=== PATIENT | male | born 1945 | race Caucasian/White ===

== ENCOUNTER 2017-09-01 09:30 | Inpatient (IN) | payer OTHER, MEDICARE ==
[~2017-09-01] VITALS: Ht 170.2 cm; Wt 94.1 kg
[2017-10-23] MEDS ORDERED: LOSA25TA PO (12:12)
[2017-10-23] MEDS ORDERED: ALPR1TAB3 PO (12:12)
[2017-10-23] MEDS ORDERED: MECL-62 PO (12:12)
[2017-10-23] MEDS ORDERED: ASPI1TAB57 PO (12:12)
[2017-10-23] MEDS ORDERED: VITA10002 PO (12:12)
[2017-10-23] MEDS ORDERED: OXYB5TAB8 PO (12:12)
[2017-10-23] MEDS ORDERED: LOTR15T TOPICAL (12:12)
[2017-10-23] MEDS ORDERED: LANS30CA PO (12:12)
[2017-10-23] MEDS ORDERED: CENTCHW3 PO (12:12)
[2017-10-23] MEDS ORDERED: ATOR40TA16 PO (12:12)
[2017-10-23] MEDS ORDERED: VITA1CAP17 PO (12:12)
[2017-10-23] MEDS ORDERED: GLIM2TAB PO (14:07)
[2017-11-10] MEDS ORDERED: VANCOMYCIN 1 GM/200 ML INJ 200 ML IV ONE (06:56)
[2017-11-10] MEDS ORDERED: METOPROLOL TARTRATE 25 MG TAB PO PRN (07:00)
[2017-11-10] MEDS ORDERED: POVIDONE IODINE 5% (ANTISEPSIS KIT) 4 APPLICATIONS EACH NARE PRN (07:00)
[2017-11-10] MEDS ORDERED: SODIUM CHLORID 0.9% 500 ML IV PRN (07:00)
[2017-11-10] MEDS ORDERED: LACTATED RINGER'S 1000 ML IV PRN (07:00)
[2017-11-10] MEDS ORDERED: CHLORHEXIDINE GLUCONATE 2 % 1 PACK (2 CLOTHS) TOPICAL PRN (07:00)
[2017-11-10] MEDS ORDERED: VANCOMYCIN 1000 MG/NS 250 ML (for <70 kg) IV SCH ×2 (07:15)
[2017-11-10] MEDS ORDERED: CHLORHEXIDINE GLUCONATE 4% SOLN 120 ML BTL TOPICAL SCH (07:15)
[2017-11-10] MEDS ORDERED: EXPAREL PERI-ARTICULAR INJECTION (TOTAL VOL. 60 ML) P-ARTICULR SCH ×2 (07:15)
[2017-11-10] MEDS ORDERED: ceFAZolin 2 GM PREMIX 50 ML IV SCH (07:15)
[2017-11-10] MEDS ORDERED: D 50CAP2 PO (07:28)
[2017-11-10] MEDS ORDERED: FURO20TA PO (07:28)
[2017-11-10] MEDS ORDERED: ALBUAER3 INH (07:28)
[2017-11-10 08:00] VITALS: BP 147/77; PULSE 75; RESP 16; TEMP 98.1; O2SAT 95
[2017-11-10] MEDS ORDERED: TRANEXAMIC ACID INJ 965 MG in SODIUM CHLORIDE 0.9% INJ 100 ML IV SCH (08:30)
[2017-11-10] MEDS ORDERED: GENTAMICIN SULFATE 80 MG/2 ML VIAL ONE (08:50)
[2017-11-10] MEDS ORDERED: BUPIVACAINE/EPINEPHRINE 0.25% PF 10 ML VIAL INFIL ONE (10:00)
[2017-11-10] MEDS ORDERED: ALPRAZolam 1 MG TAB PO PRN (11:00)
[2017-11-10] MEDS ORDERED: ONDANSETRON ODT 4 MG TAB PO PRN (11:00)
[2017-11-10] MEDS ORDERED: ALBUTEROL SULFATE 90 MCG/ACT HFA 8 GM INHALER INH PRN (11:00)
[2017-11-10] MEDS ORDERED: ASPIRIN 81 MG CHEW TAB CHEW ONE (11:00)
[2017-11-10] MEDS ORDERED: diphenhydrAMINE HCL 25 MG CAP PO PRN (11:00)
[2017-11-10] MEDS ORDERED: Post-op Orders (for Pharmacy) XX ONE (11:00)
--- NOTE | 2017-11-10 11:00 | PD.OP ---
cc: Juan Manuel Llamas MD Operative Report Date of Surgery: Nov 10, 2017 Preoperative Diagnosis: Osteoarthritis left hip. Avascular necrosis left hip Postoperative Diagnosis: Same Procedure: Left total hip replacement arthroplasty Anesthesia: General Surgeon: Juan Manuel Llamas Wind Turbine Performance Engineer(s): REBECA Garzon Operation and Findings: EBL: 500 cc INDICATION: This patient presents with significant hip pain related to osteoarthritis of left hip and avascular necrosis with collapse. Despite extensive conservative care this patient continues to be painful and now presents for surgical treatment. NOTE: Elly Garzon PA-C was present for the entire surgical procedure as my shampoo assistant. In my medical opinion her skill and care was necessary for the proper management of this patient. COMPONENTS: COMPANY: [employer] CUP: [place], 52, 100 series, gription surface LINER: Altrx 36, neutral STEM: [place], high offset, size 12, hydroxyapatite-coated HEAD: 36, +1.5, 12/14 taper PROCEDURE: This patient was brought to the operating room and anesthetized in the supine position and positioned on the fracture table with both legs held extended. The left hip and leg was scrubbed with alcohol followed by Hibiclens followed by ChloraPrep and draped sterilely. Antibiotics were given within routine time window and a timeout was done. A 4 inch incision was made starting 2 cm distal and 2 cm lateral to the anterior superior iliac spine. The fascia shelbi was opened longitudinally. The interval between the fascia shelbi and the rectus was opened down to the capsule of the hip joint. Retractors were positioned allowing good visualization of the capsule. This was opened longitudinally and flaps were created. Stay sutures were utilized. Exposure was excellent. The neck was cut at the proper location using fluoroscopy as a guide. The head was removed. Deep retractors were positioned allowing good visualization of the acetabulum. Acetabulum was deepened down to the floor starting with a proper size reamer and reaming up to 51 mm. A trial was utilized. Fluoroscopy was used to check position and confirmed satisfactory alignment. The rim was reamed with a 52 mm reamer and the final cup was positioned in approximately 20 of anteversion and 40-45 of abduction. Position was satisfactory. A single hole eliminator was positioned followed by the final liner. The lifting hook was utilized. The leg was dropped to the floor, maximally externally rotated and brought across the midline. Retractors were positioned. A box osteotome was utilized followed by progressive broaching to the proper stem size. Trial reduction showed excellent alignment and fit. With 60 of external rotation the leg was dropped to the floor without evidence of anterior subluxation. The wound was irrigated. The final stem was inserted and was found to be very stable. The final reduction using the final head. Stability was as previously noted. Intraoperative x-rays were taken. The wound was irrigated copiously. Hemostasis was controlled. Local anesthesia was utilized. The capsule was repaired with #2 Tycron sutures. The fascia shelbi was repaired with running 0 PDS on a loop. Subcutaneous tissue was approximated with 2-0 Vicryl and skin with running intradermal 3-0 Vicryl followed by Steri-Strips. A sterile dressing was applied. The patient was awakened and taken to the recovery room in satisfactory condition. FINDINGS: There was a fracture in the femoral head. This was cut and was consistent with avascular necrosis globally involving the femoral head with collapse. There was no complication that was appreciated. Juan Manuel Llamas MD Nov 10, 2017 11:00
[2017-11-10] MEDS ORDERED: HYDR-3583 PO (11:09)
[2017-11-10] MEDS ORDERED: ASPI325T33 PO (11:09)
[2017-11-10] MEDS: LACTATED RINGER'S 1000 ML INJ 1,000 ML IV SCH ×2 (11:40→23:25)
[2017-11-10] MEDS ORDERED: MIDAZOLAM HCL 2 MG/2 ML VIAL ONE (11:42)
[2017-11-10 12:00] VITALS: BP 163/75; PULSE 62; RESP 16; TEMP 98.2; O2SAT 97
[2017-11-10] MEDS ORDERED: PROPOFOL 200 MG/20 ML AMP IV ONE (12:00)
[2017-11-10] MEDS ORDERED: ONDANSETRON HCL 4 MG/2 ML VIAL IV ONE (12:00)
[2017-11-10] MEDS ORDERED: ROCURONIUM INJ 50 MG/5 ML SYRINGE IV PUSH ONE (12:00)
[2017-11-10] MEDS ORDERED: LACTATED RINGER'S 1000 ML INJ 1,000 ML IV ONE (12:00)
[2017-11-10] MEDS ORDERED: LIDOCAINE HCL 1% PF 5 ML SYRINGE OTHER ONE (12:00)
[2017-11-10] MEDS ORDERED: ceFAZolin INJ 1,000 MG VIAL IV ONE (12:00)
[2017-11-10] MEDS ORDERED: NEOSTIGMINE 5 MG/5 ML SYRINGE IV PUSH ONE (12:00)
[2017-11-10] MEDS ORDERED: DEXAMETHASONE SOD PHOS 4 MG/ML VIAL IV ONE (12:00)
[2017-11-10] MEDS ORDERED: GLYCOPYRROLATE 1 MG/5 ML SYRINGE IV PUSH ONE (12:00)
[2017-11-10] MEDS ORDERED: PHENYLEPH/NS 1000 MCG/10 ML SYR IV ONE (12:00)
[2017-11-10] MEDS ORDERED: ePHEDrine/NS 25 MG/5 ML SYRINGE IV ONE (12:00)
[2017-11-10] MEDS ORDERED: DO NOT ADM ANY ANTICOAGULANT DRUGS PRN (12:15)
[2017-11-10] MEDS: OXYBUTYNIN CHLORIDE 5 MG TAB PO SCH ×2 (14:01→21:08)
[2017-11-10] MEDS: ACETAMINOPHEN/HYDROcodone 325 MG/10 MG TAB PO PRN ×2 (14:02→21:10)
[2017-11-10 14:32] VITALS: O2SAT 97
[2017-11-10 16:00] VITALS: BP 153/74; PULSE 74; RESP 18; TEMP 98; O2SAT 97
--- NOTE | 2017-11-10 16:01 | RADRPT ---
EXAM DATE: 11/10/2017 2:34 PM EDT AGE/SEX: 72 years / Male INDICATIONS: Left total hip replacement. CLINICAL DATA: This is the patient's initial encounter. Patient reports that signs and symptoms have been present for 1 day and indicates a pain score of Nonresponsive. MEDICAL/SURGICAL HISTORY: Non-responsive. Non-responsive. COMPARISON: No prior [place] exams available for comparison. FINDINGS: Total hip arthroplasty in good position CONCLUSION: Total hip arthroplasty in good position Electronically signed by: Gilmer Orantes MD 11/10/2017 3:59 PM EDT
[2017-11-10] MEDS ORDERED: MECLIZINE HCL 25 MG TAB PO PRN (18:00)
[2017-11-10 20:45] VITALS: BP 150/72; PULSE 65; RESP 16; TEMP 97.9; O2SAT 94
[2017-11-10] MEDS: MAGNESIUM HYDROXIDE SUSP 30 ML CUP PO SCH (21:00)
[2017-11-10] MEDS: SENNOSIDES 8.6 MG TAB PO SCH (21:07)
[2017-11-10] MEDS: ASPIRIN EC 81 MG TABEC PO SCH (21:07)
[2017-11-10] MEDS: MORPHINE SULFATE 8 MG/ML INJ IM PRN (23:33)
[2017-11-11 00:57] VITALS: BP 131/63; PULSE 64; RESP 16; TEMP 97.6; O2SAT 93
[2017-11-11] MEDS: ACETAMINOPHEN/HYDROcodone 325 MG/10 MG TAB PO PRN ×3 (01:33→18:05)
[2017-11-11 04:45] VITALS: BP 136/64; PULSE 63; RESP 17; TEMP 98.2; O2SAT 95
[2017-11-11] MEDS: MORPHINE SULFATE 8 MG/ML INJ IM PRN (05:48)
[2017-11-11] MEDS: OXYBUTYNIN CHLORIDE 5 MG TAB PO SCH ×3 (05:48→22:23)
[2017-11-11 07:30] LABS: HEMATOCRIT 32.3 % (39.0-51.0); HEMOGLOBIN 10.6 GM/DL (13.0-17.0)
[2017-11-11 08:03] VITALS: BP 114/62; PULSE 71; RESP 18; TEMP 98.1; O2SAT 95
[2017-11-11] MEDS: MAGNESIUM HYDROXIDE SUSP 30 ML CUP PO SCH ×2 (09:00→20:22)
[2017-11-11] MEDS: ASPIRIN EC 81 MG TABEC PO SCH ×2 (09:00→20:22)
[2017-11-11] MEDS: LOSARTAN 25 MG TAB PO SCH (09:13)
[2017-11-11] MEDS: FUROSEMIDE 20 MG TAB PO SCH (09:16)
[2017-11-11] MEDS: PANTOPRAZOLE SOD 40 MG DELAYED RELEASE TAB PO SCH (09:18)
[2017-11-11] MEDS: GLIMEPIRIDE 2 MG TAB PO SCH (09:21)
--- NOTE | 2017-11-11 10:38 | HHI.FF ---
Face to Face Verification Diagnosis: (1) Avascular necrosis of bone of left hip Physical Therapy Gait training, Safety evaluation, Transfer training, bed to chair Hip: Total hip, Protocol: Left, Progress to weight bearing Left LE Weight Bearing: WB as tolerated Additional Instructions PT 4 days/week for 2 weeks. WBAT Left LE. Walker as needed. Anterior JOURDAN protocol. Nursing RN Days per Week: 3 x Week(s): 1 Dressing Changes: Do not change dressing Additional Instructions Vitals assessment. Dressing assessment - do not change unless saturated. I have seen patient Bk Sr Wilbert on 11/11/17. My clinical findings support the need for the requested home health care services because: Limited ability to care for self High risk of falls I certify that my clinical findings support that this patient is homebound because: Post-op weakness Unsteady gait/balance Elly Garzon Nov 11, 2017 10:38
[2017-11-11] MEDS ORDERED: WALKER WHEELS/F1 MIS (10:39)
[2017-11-11] MEDS ORDERED: COMMODE 3-IN-11 MIS (10:40)
[2017-11-11] MEDS ORDERED: MECLIZINE HCL 25 MG TAB PO PRN (11:30)
[2017-11-11] MEDS: LACTATED RINGER'S 1000 ML INJ 1,000 ML IV SCH (11:55)
[2017-11-11 12:13] VITALS: BP 136/65; PULSE 74; RESP 18; TEMP 98.5; O2SAT 95
[2017-11-11 16:00] VITALS: BP 105/51; PULSE 77; RESP 17; TEMP 97.7; O2SAT 90
[2017-11-11 20:00] VITALS: BP 117/61; PULSE 86; RESP 20; TEMP 98.6; O2SAT 95
[2017-11-11] MEDS: SENNOSIDES 8.6 MG TAB PO SCH (20:22)
--- NOTE | 2017-11-11 22:14 | PD.ORT.PN ---
Subjective Subjective Remarks Pt seen and examined 12:45 - in PT class. States 'hip hurts like hell' but that 'he's fine'. Denies any new radiating leg pain. No new CP or SOB. Questions about surgery. Wants to go home today. Objective Vitals Vital Signs Date Time Temp Pulse Resp B/P (MAP) Pulse Ox O2 Delivery O2 Flow Rate FiO2 11/11/17 20:00 98.6 86 20 117/61 (79) 95 11/11/17 16:00 97.7 77 17 105/51 (69) 90 11/11/17 13:10 17 11/11/17 12:13 98.5 74 18 136/65 (88) 95 11/11/17 08:03 98.1 71 18 114/62 (79) 95 11/11/17 04:45 98.2 63 17 136/64 (88) 95 11/11/17 00:57 97.6 64 16 131/63 (85) 93 I/O 11/10/17 11/10/17 11/10/17 11/11/17 11/11/17 11/11/17 07:00 15:00 23:00 07:00 15:00 23:00 Intake Total 2050 ml 720 ml 100 ml 640 ml Output Total 900 ml 800 ml 600 ml Balance 1150 ml -80 ml 100 ml 40 ml Intake Oral 50 ml 720 ml 640 ml IV Total 100 ml Other 2000 ml Output Urine Total 400 ml 800 ml 600 ml Estimated Blood Loss 500 ml # Voids 3 2 # Bowel Movements 0 Result Diagram: 11/11/17 0630 Objective Remarks Sitting up in chair NAD With PT staff in classroom VSS LeftLE Hip dressing c/d/i, little swelling, no erythema +motor at, +sens, +nvi Neg homans 1+ pedal edema Assessment & Plan Ortho Post Op Day #: 1 Problem List: Assessment and Plan pod#1 s/p Left JOURDAN, anterior Pain only moderately controlled but patient stable. PT- WBAT LLE. Anterior jourdan precautions. Hold dressing changes unless saturated. ASA 81mg. IS encouraged. Ice left hip bid. D/C planning, pt prefers HHC today. I am not willing to discharge today due to safety risks. PT staff state he has required significant assistance. Consider discharge vs thursday. F2F / DMEwritten. Elly Garzon Nov 11, 2017 22:14
[2017-11-12] VITALS: BP 130/59; PULSE 96; RESP 20; TEMP 98.9; O2SAT 94
[2017-11-12] MEDS: LACTATED RINGER'S 1000 ML INJ 1,000 ML IV SCH ×2 (00:25→12:12)
[2017-11-12] MEDS: OXYBUTYNIN CHLORIDE 5 MG TAB PO SCH ×3 (05:13→21:08)
[2017-11-12 08:15] VITALS: BP 128/60; PULSE 79; RESP 18; TEMP 99.4; O2SAT 93
[2017-11-12] MEDS: MAGNESIUM HYDROXIDE SUSP 30 ML CUP PO SCH ×2 (09:27→21:00)
[2017-11-12] MEDS: PANTOPRAZOLE SOD 40 MG DELAYED RELEASE TAB PO SCH (09:27)
[2017-11-12] MEDS: FUROSEMIDE 20 MG TAB PO SCH (09:27)
[2017-11-12] MEDS: LOSARTAN 25 MG TAB PO SCH (09:27)
[2017-11-12] MEDS: ASPIRIN EC 81 MG TABEC PO SCH ×2 (09:27→19:48)
[2017-11-12] MEDS: GLIMEPIRIDE 2 MG TAB PO SCH (09:28)
[2017-11-12 12:16] VITALS: BP 165/74; PULSE 84; RESP 17; TEMP 97.8; O2SAT 95
[2017-11-12 16:07] VITALS: BP 121/61; PULSE 81; RESP 18; TEMP 99.4; O2SAT 95
[2017-11-12] MEDS: ACETAMINOPHEN/HYDROcodone 325 MG/10 MG TAB PO PRN (19:48)
[2017-11-12 20:00] VITALS: BP 134/63; PULSE 80; RESP 20; TEMP 97.7; O2SAT 96
[2017-11-12] MEDS: SENNOSIDES 8.6 MG TAB PO SCH (21:00)
--- NOTE | 2017-11-12 22:17 | PD.ORT.PN ---
Subjective Subjective Remarks Pt seen and examined at 0800 this morning. Pain 'doing fine' today. No complaints overnight though nursing staff let me know that he was cursing at the network support last night. THey do not know why. Pt feels as though he should be going home today. Denies any new radiating leg pain. No new CP or SOB. Objective Vitals Vital Signs Date Time Temp Pulse Resp B/P (MAP) Pulse Ox O2 Delivery O2 Flow Rate FiO2 11/12/17 20:00 97.7 80 20 134/63 (86) 96 11/12/17 16:07 99.4 81 18 121/61 (81) 95 11/12/17 12:16 97.8 84 17 165/74 (104) 95 11/12/17 08:15 99.4 79 18 128/60 (82) 93 11/12/17 00:00 98.9 96 20 130/59 (82) 94 I/O 11/11/17 11/11/17 11/11/17 11/12/17 11/12/17 11/12/17 07:00 15:00 23:00 07:00 15:00 23:00 Intake Total 720 ml 100 ml 640 ml 240 ml 1300 ml Output Total 800 ml 600 ml Balance -80 ml 100 ml 40 ml 240 ml 1300 ml Intake Oral 720 ml 640 ml 240 ml 1300 ml IV Total 100 ml Output Urine Total 800 ml 600 ml # Voids 2 3 15 # Bowel Movements 0 0 Result Diagram: 11/11/17 0630 Objective Remarks Sitting up in chair NAD VSS LeftLE Hip dressing c/d/i, little swelling, no erythema +motor at, +sens, +nvi Neg homans 1+ pedal edema Assessment & Plan Ortho Post Op Day #: 2 Problem List: Assessment and Plan pod#2 s/p Left JOURDAN, anterior Pain controlled on PO pain meds. PT- WBAT LLE. Anterior jourdan precautions. Hold dressing changes unless saturated. ASA 81mg. IS encouraged. Ice left hip bid. D/C planning, SNF thursday. He continues to state he is ready to go and PT reviews continue to show he is not safe for discharge. F2F / DMEwritten. Elly Garzon Nov 12, 2017 22:17
[2017-11-13] VITALS: BP 122/60; PULSE 65; RESP 18; TEMP 98; O2SAT 97
[2017-11-13] MEDS: LACTATED RINGER'S 1000 ML INJ 1,000 ML IV SCH ×2 (01:25→11:06)
[2017-11-13] MEDS: OXYBUTYNIN CHLORIDE 5 MG TAB PO SCH ×2 (04:16→12:22)
[2017-11-13] MEDS: ACETAMINOPHEN/HYDROcodone 325 MG/10 MG TAB PO PRN (04:16)
[2017-11-13] MEDS: FUROSEMIDE 20 MG TAB PO SCH (07:21)
[2017-11-13] MEDS: ASPIRIN EC 81 MG TABEC PO SCH (07:21)
[2017-11-13] MEDS: PANTOPRAZOLE SOD 40 MG DELAYED RELEASE TAB PO SCH (07:21)
[2017-11-13] MEDS: LOSARTAN 25 MG TAB PO SCH (07:22)
[2017-11-13] MEDS: GLIMEPIRIDE 2 MG TAB PO SCH (07:22)
[2017-11-13] MEDS: MAGNESIUM HYDROXIDE SUSP 30 ML CUP PO SCH (07:22)
--- NOTE | 2017-11-13 07:46 | PD.ORT.PN ---
Subjective Subjective Remarks Doing well. Sitting in a chair. Plans to go to SNF Objective Vitals Vital Signs Date Time Temp Pulse Resp B/P (MAP) Pulse Ox O2 Delivery O2 Flow Rate FiO2 11/13/17 00:00 98.0 65 18 122/60 (80) 97 11/12/17 20:00 97.7 80 20 134/63 (86) 96 11/12/17 16:07 99.4 81 18 121/61 (81) 95 11/12/17 12:16 97.8 84 17 165/74 (104) 95 11/12/17 08:15 99.4 79 18 128/60 (82) 93 I/O 11/12/17 11/12/17 11/12/17 11/13/17 11/13/17 11/13/17 07:00 15:00 23:00 07:00 15:00 23:00 Intake Total 240 ml 1300 ml 600 ml Balance 240 ml 1300 ml 600 ml Intake Oral 240 ml 1300 ml 600 ml # Voids 3 15 4 # Bowel Movements 0 Result Diagram: 11/11/17 0630 Objective Remarks Sitting up in chair NAD VSS LeftLE Hip dressing c/d/i, little swelling, no erythema +motor at, +sens, +nvi Neg homans 1+ pedal edema Assessment & Plan Assessment and Plan pod#3 s/p Left JOURDAN, anterior Pain controlled on PO pain meds. PT- WBAT LLE. Anterior jourdan precautions. Hold dressing changes unless saturated. ASA 81mg, twice daily. IS encouraged. Ice left hip bid. D/C planning, SNF today F2F / DMEwritten. Juan Manuel Llamas MD Nov 13, 2017 07:46
--- NOTE | 2017-11-13 07:49 | HHI.DS ---
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 He was taken to the operating room on the date of admission. She had a total hip replacement under a general anesthetic. He had a relatively unremarkable postoperative course. Initial plans for him to go at home but there is no be at home with him. Arrangements made for transfer [facility]. Weightbearing as tolerated. Diabetic diet. Use of a walker. No dressing change Pt Condition on Discharge: Good Discharge Disposition: Discharge to SNF Discharge Instructions Diet Instructions: Diabetic Diet Activities You Can Perform: Weight Bearing as Ger[place] Activities to Avoid: Bathing, Driving Juan Manuel Llamas MD Nov 13, 2017 07:49
[2017-11-13 08:00] VITALS: BP 145/68; PULSE 76; RESP 18; TEMP 98.5; O2SAT 95
[2017-11-13 12:00] VITALS: BP 134/60; PULSE 66; RESP 18; TEMP 97.2; O2SAT 95
== END 2017-11-13 16:31 | DRG 470 ==
LOC: HSDI 11-10 06:17 → N06A 11-10 13:04
PROVIDERS: ADMIT Orthopaedic Surgery Orthopaedic Surgery of the Spine; ATTEND Orthopaedic Surgery Orthopaedic Surgery of the Spine
PROC: 0SRB0JA Replacement of Left Hip Joint with Synthetic Substitute, Uncemented, Open Approach (ICD-10-PCS; principal; 2017-11-10 08:44)
DX: M16.12 Unilateral primary osteoarthritis, left hip (principal); E11.9 Type 2 diabetes mellitus without complications; M87.052 Idiopathic aseptic necrosis of left femur; I10 Essential (primary) hypertension; E78.5 Hyperlipidemia, unspecified; K21.9 Gastro-esophageal reflux disease without esophagitis; Z86.711 Personal history of pulmonary embolism; Z87.891 Personal history of nicotine dependence; Z79.84 Long term (current) use of oral hypoglycemic drugs; Z86.718 Personal history of other venous thrombosis and embolism; Z85.828 Personal history of other malignant neoplasm of skin
CPT/HCPCS: 73502; 76000; 82948; 85014; 85018; 86850; 86900; 86901; 86920; 94150; C1776; J0690; J1100; J1580; J2250; J2270; J2370; J2405; J2710; J3010; J3370; J7050; J7120

== ENCOUNTER → 2017-10-23 | Outpatient (CLI) | DX: M16.12 Unilateral primary osteoarthritis, left hip (principal) ==